=== PATIENT | male | born 1980 ===

== ENCOUNTER → 2024-07-04 19:16 | Outpatient (CLI) | payer OTHER, SELFPAY ==
--- NOTE | 2024-07-04 19:20 | DI.MRI.S_ITS ---
PROCEDURE: MR KNEE RT WO CON INDICATIONS: complex tear of medial meniscus,current injury rt TECHNIQUE: Noncontrast sagittal PD fast spin echo and T2 fast spin echo with fat saturation, sagittal 3-D FLASH with fat saturation; coronal T1 spin echo and PD fast spin echo with fat saturation, and axial PD fast spin echo with fat saturation through the knee. COMPARISON: [facility] MR, MR KNEE RIGHT WITHOUT CONTRAST, 07/05/2023, 15:43. [facility] [place], CR, XR KNEE 4+ VIEWS RIGHT, 06/25/2024, 9:17. FINDINGS: Image quality: Excellent. Anterior cruciate ligament: Intact. Posterior cruciate ligament: Intact. Medial collateral ligament: Mild thickening of the proximal medial collateral ligament without surrounding edema is consistent with remote prior low-grade sprain. Lateral collateral ligament: Intact. Medial meniscus: Horizontal oblique tearing of the body and posterior horn of the medial meniscus extending to the middle third of the tibial articular surface. Lateral meniscus: Mild free edge fibrillation of the body of the lateral meniscus. Focal undersurface tearing is seen involving the posterior horn. Medial and lateral tendons: The semimembranosus tendon insertions appear intact. Visualized portions of the pes anserinus tendons appear normal. Small amount of fluid is seen in the pes anserine bursa. The popliteus tendon is intact. Iliotibial band appears normal. Anterior structures: The quadriceps and patellar tendons appear intact. 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 Mild scarring in the infrapatellar fat pad. Bones and cartilage: No bone marrow contusions or fractures. Articular cartilages: No focal cartilage defect. 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 Soft tissues: Moderate joint effusion. No significant medial popliteal cyst. The musculature surrounding the knee is normal in bulk. IMPRESSION: 1. Presumed postsurgical changes from prior medial meniscal repair. The posterior horn component appears less prominent which may be related to interval postsurgical changes. There is uptake of [place] joint fluid at the posterior meniscal body suggesting residual or recurrent meniscal tearing. 2. Shallow undersurface tearing of the posterior horn of the lateral meniscus appears new when compared to the prior MRI. Mild free edge fibrillation of the lateral meniscal body. 3. Remote prior low-grade sprain of the proximal medial collateral ligament. 4. Small pes anserine bursal effusion or mild bursitis. 5. Cruciate ligaments are intact. No acute trabecular bone injury. 6. Moderate joint effusion. Approved by: Linden Degroot M.D. on 07/05/2024 at 11:38
== END ==
PROVIDERS: PCP Nurse Practitioner; Referring Provider Preventive Medicine Occupational Medicine; Visit Provider Preventive Medicine Occupational Medicine
DX: S83.281A Other tear of lateral meniscus, current injury, right knee, initial encounter (principal); S83.411A Sprain of medial collateral ligament of right knee, initial encounter; M25.461 Effusion, right knee
CPT/HCPCS: 73721